=== PATIENT | female | born 1970 | race Caucasian/White ===

== ENCOUNTER 2017-02-19 16:21 | Emergency (ER) | payer BC ==
[~2017-02-19] VITALS: Ht 160 cm; Wt 59.0 kg
[~2017-02-19 16:21] MED LIST: NOMEDS *
--- OUTSIDE RECORDS SUMMARY | 2017-02-19 17:02 | External Medical Summary Rpt ---
Author Author KASH Campos, [employer] Address Unknown Phone Unavailable
--- OUTSIDE RECORDS SUMMARY | 2017-02-19 17:02 | External Medical Summary Rpt | CCD ---
Demographics Preferred Language Mohawk Marital Status Unknown Judaism Affiliation Unknown Race Unknown Ethnic Group Unknown Author Author , KASH HEWITT Address Unknown Phone Immunization No patient found.
--- OUTSIDE RECORDS SUMMARY | 2017-02-19 17:02 | External Medical Summary Rpt | CCD ---
Author Author KASH Address Unknown Phone Purpose Continuity of Care Document - through 2016
--- OUTSIDE RECORDS SUMMARY | 2017-02-19 17:02 | External Medical Summary Rpt | CCD ---
Author Author KASH Address Unknown Phone [email or web address] Purpose Continuity of Care Document - through 2016
--- OUTSIDE RECORDS SUMMARY | 2017-02-19 17:02 | External Medical Summary Rpt | CCD ---
Demographics Preferred Language Thai Marital Status Unknown Bahai Affiliation Unknown Race Unknown Ethnic Group Unknown Author Author , KASH HEWITT Address Unknown Phone Immunization No patient found.
[2017-02-19 19:05] VITALS: BP 136/73
[2017-02-19] MEDS ORDERED: AMOXICILLIN875 MG PO (19:05)
--- NOTE | 2017-02-19 19:05 | Urgent Treatment Center Report ---
History of Present Issue Date/Time Seen by Provider 02/19/171899 Visit Reason Pt arrived:Walked Presenting Problem:PT C/O LEFT EAR PAIN Location if Accident: Onset of symptoms date/time:/ or onset unknown for:MEDICAL HX UNKNOWN Have you (or family members/close friends) recently traveled outside the [place]? N If Yes, where/when: Have you had exposure to infectious disease within the past month? TB? Other? Specify: c/o left ear pain. "I know it is infected. The school nurse already told me". Intermittent ear pain x weeks but woke up this morning w/ pain worse and decreased hearing. Hasn't taken or tried anything. "I just need an antibiotic". Hx of allergies. "I keep drainage". No recent ear infections. No antibiotics in months. Source patient Exam Limitations no limitations ALLERGIES Coded Allergies: No Known Allergies (07/12/16) Home Medications Reported Medications No Home Medications (NO HOME MEDICATIONS) 1 X * ONCE History Medical History General CAD? No Angina: No MA: No Hypertension? No Hyperlipidemia? No CHF? No DVT? No PE? No COPD? No Asthma? No Anemia? No GERD? No Gastric ulcers? No GI Bleed? No Hernia? No Thyroid Problems? No Hypothyroidism? No CVA? No Seizures? No Diabetes? No Renal Insuffiency? No UTI? No Stones? No BPH? No GB Disease: No Nephritic Syndrome? No Asplenia? No Hepatitis? No Sickle Cell Disease? No Arthritis? No Cataracts? No Glaucoma? No MRSA? No HIV? No TB? No Anxiety? No Depression? No Cancer? No More? No Immunization HX DT/Tetanus UNKNOWN Flu 2YRSorMore Pneumonia NEVER Surgical Hx Previous Surgery?Y OVARIAN CYST 2 C SECTIONS ABLATION AND LEEP Family History Family HX Diabetes No CAD No Hypertension No Hyperlipidemia No Cancer No TB No Social History Smoking Hx Smoker: Never Smoker Tobacco: No Alcohol Alcohol: No Review of Systems All Other Systems Reviewed and Negative Constitutional denies fever, denies malaise Eyes denies drainage ENT see HPI, nose discharge. denies: ear discharge, nose congestion, throat pain. Respiratory denies cough Musculoskeletal denies joint pain Skin denies rash Psychiatric/Neurological denies headache Physical Exam Vital Signs Vital Signs Date Time Temp Pulse Resp B/P Pulse O2 O2 Flow FiO2 Ox Delivery Rate 02/19 1905 98.0 70 20 136/73 98 02/19 1830 98.0 70 20 136/73 98 General Appearance normal appearance, no apparent distress, active Ear, Nose, Throat normal pharynx, normal nares, galina EACs and right TM; left TM intact but bulging, dull and erythematous Respiratory Status No: respiratory distress, productive cough, non productive cough. Lung Sounds anterior: lungs clear. posterior: lungs clear. bilateral: lungs clear. Cardiovascular regular rate/rhythm, no peripheral edema Neurologic alert, oriented x 3 Mental status normal mood/affect Skin normal color, warm/dry Lymphatic no adenopathy Medical Decision Making LABS/Meds/Orders Pt receiving controlled substance in ED? No Departure Departure Time of Disposition 1902 Disposition DC Home or Self Care(routine) Clinical Impression Primary Impression: Left otitis media Qualifiers: Otitis media type: suppurative Chronicity: acute Recurrence: not specified as recurrent Spontaneous tympanic membrane rupture: without spontaneous rupture Qualified Code: H66.002 - Acute suppurative otitis media without spontaneous rupture of ear drum, left ear Condition STABLE Referrals Steve WEI,Maximiliano (Family) Immediately for new or worsening symptoms, no noticeable improvement in 48-72 hours AND in 10-14 days to ensure ears are back to baseline. Patient Instructions DI for Otitis Media (Middle Ear Infection)-Child Additional Instructions * Start antibiotic ROSALBA and be sure to take as ordered for the FULL length of time although you should start to feel better in 24-48 hours. * Monitor Temp. FU if fevers develop * Encourage fluids, water, Gatorade, PowerAde, pedialyte if /toddler/child * warm compress often helps when placed over ear * sleep elevated Discharge Counseling Counseled pt/family regarding diagnosis, medications/RX, home care, follow up needs Prescriptions Current Visit Scripts AMOXICILLIN (Amoxicillin 875MG Tab) 875 MG PO BID #20 TAB at 1911
== END 2017-02-19 19:06 | disposition home or self-care (01) ==
LOC: UTC 16:21
DX: H66.002 Acute suppurative otitis media without spontaneous rupture of ear drum, left ear (principal)